=== PATIENT | female | born 1960 | race Caucasian/White ===

== ENCOUNTER → 2024-12-06 | Outpatient (CLI) | payer MEDICARE, SELFPAY ==
--- NOTE | 2024-12-06 09:07 | BI_ITS ---
EXAM: DIAG MAMM W/CAD, BILAT; BILAT BRST DEANDRA STAND ALONE; BREAST LIMITED UNILATERAL 12/06/2024 CLINICAL HISTORY: F, Age 64 y/o , MAMMOGRAM BILATERAL DIAGNOSTIC; ABN MAMM; ABD MAMM 64-year-old female presents for follow-up of the right breast mass seen on outside examination of 04/11/2024. TECHNIQUE: Procedure Code: [id number]; BIBILATBRTOM; USBRSTLIMIT Modality: MG; US Procedure: DIAG MAMM W/CAD, BILAT; BILAT BRST DEANDRA STAND ALONE; BREAST LIMITED UNILATERAL. COMPARISON: Prior exam(s) dated ultrasound 04/11/2024, 07/13/2023; mammogram 06/23/2023, 02/12/2019, 02/01/2018. FINDINGS: MAMMOGRAM: TISSUE DENSITY: There are scattered areas of fibroglandular density. Right breast: Follow-up examination performed for the right breast mass seen on examination of 04/11/2024. On the present examination, there is a mass in the upper central right breast at anterior depth, this appears mammographically stable on multiple priors dating back to 02/01/2018. Left breast: No significant masses, calcifications or other abnormalities are identified. ULTRASOUND: Ultrasound performed of the right breast demonstrates a hypoechoic circumscribed oval mass at 12 o'clock 1 cm from the nipple measuring 0.8 x 0.7 x 0.4 cm. This correlates with the mammographic finding and likely represents a fibroadenoma. BI/DIAG MAMM W/CAD, BILAT IMPRESSION: 1. Stable right breast mass at 12 o'clock 1 cm from the nipple, has not change d on multiple prior mammograms dating back to 02/01/2018. 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 2. There is no evidence of malignancy in either breast. OVERALL FINAL ASSESSMENT BI-RADS 2: BENIGN RECOMMENDATION: Routine annual follow-up in 1 Year Additional Recommendation none A letter with findings and recommendations will be mailed to the patient. Reading Location: [id number]
--- NOTE | 2024-12-06 09:15 | BI_ITS ---
EXAM: DIAG MAMM W/CAD, BILAT; BILAT BRST DEANDRA STAND ALONE; BREAST LIMITED UNILATERAL 12/06/2024 CLINICAL HISTORY: F, Age 64 y/o , MAMMOGRAM BILATERAL DIAGNOSTIC; ABN MAMM; ABD MAMM 64-year-old female presents for follow-up of the right breast mass seen on outside examination of 04/11/2024. TECHNIQUE: Procedure Code: [id number]; BIBILATBRTOM; USBRSTLIMIT Modality: MG; US Procedure: DIAG MAMM W/CAD, BILAT; BILAT BRST DEANDRA STAND ALONE; BREAST LIMITED UNILATERAL. COMPARISON: Prior exam(s) dated ultrasound 04/11/2024, 07/13/2023; mammogram 06/23/2023, 02/12/2019, 02/01/2018. FINDINGS: MAMMOGRAM: TISSUE DENSITY: There are scattered areas of fibroglandular density. Right breast: Follow-up examination performed for the right breast mass seen on examination of 04/11/2024. On the present examination, there is a mass in the upper central right breast at anterior depth, this appears mammographically stable on multiple priors dating back to 02/01/2018. Left breast: No significant masses, calcifications or other abnormalities are identified. ULTRASOUND: Ultrasound performed of the right breast demonstrates a hypoechoic circumscribed oval mass at 12 o'clock 1 cm from the nipple measuring 0.8 x 0.7 x 0.4 cm. This correlates with the mammographic finding and likely represents a fibroadenoma. BI/Bilat Brst Deandra Stand Alone IMPRESSION: 1. Stable right breast mass at 12 o'clock 1 cm from the nipple, has not change d on multiple prior mammograms dating back to 02/01/2018. 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 2. There is no evidence of malignancy in either breast. OVERALL FINAL ASSESSMENT BI-RADS 2: BENIGN RECOMMENDATION: Routine annual follow-up in 1 Year Additional Recommendation none A letter with findings and recommendations will be mailed to the patient. Reading Location: [id number]
--- NOTE | 2024-12-06 09:37 | US_ITS ---
EXAM: DIAG MAMM W/CAD, BILAT; BILAT BRST DEANDRA STAND ALONE; BREAST LIMITED UNILATERAL 12/06/2024 CLINICAL HISTORY: F, Age 64 y/o , MAMMOGRAM BILATERAL DIAGNOSTIC; ABN MAMM; ABD MAMM 64-year-old female presents for follow-up of the right breast mass seen on outside examination of 04/11/2024. TECHNIQUE: Procedure Code: [id number]; BIBILATBRTOM; USBRSTLIMIT Modality: MG; US Procedure: DIAG MAMM W/CAD, BILAT; BILAT BRST DEANDRA STAND ALONE; BREAST LIMITED UNILATERAL. COMPARISON: Prior exam(s) dated ultrasound 04/11/2024, 07/13/2023; mammogram 06/23/2023, 02/12/2019, 02/01/2018. FINDINGS: MAMMOGRAM: TISSUE DENSITY: There are scattered areas of fibroglandular density. Right breast: Follow-up examination performed for the right breast mass seen on examination of 04/11/2024. On the present examination, there is a mass in the upper central right breast at anterior depth, this appears mammographically stable on multiple priors dating back to 02/01/2018. Left breast: No significant masses, calcifications or other abnormalities are identified. ULTRASOUND: Ultrasound performed of the right breast demonstrates a hypoechoic circumscribed oval mass at 12 o'clock 1 cm from the nipple measuring 0.8 x 0.7 x 0.4 cm. This correlates with the mammographic finding and likely represents a fibroadenoma. US/Breast Limited Unilateral IMPRESSION: 1. Stable right breast mass at 12 o'clock 1 cm from the nipple, has not change d on multiple prior mammograms dating back to 02/01/2018. 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 2. There is no evidence of malignancy in either breast. OVERALL FINAL ASSESSMENT BI-RADS 2: BENIGN RECOMMENDATION: Routine annual follow-up in 1 Year Additional Recommendation none A letter with findings and recommendations will be mailed to the patient. Reading Location: [id number]
== END | disposition home or self-care (01) ==
PROVIDERS: PCP Family Medicine; Referring Provider Family Medicine; Visit Provider Family Medicine
DX: R92.8 Other abnormal and inconclusive findings on diagnostic imaging of breast (principal)
CPT/HCPCS: 76642; 77062; 77066; G0279